=== PATIENT | female | born 1990 | race Two or more races ===

== ENCOUNTER 2025-05-20 18:11 | Emergency (ER) | payer MEDICAID, OTHER ==
[~2025-05-20] VITALS: Ht 157.5 cm; Wt 92.7 kg
--- NOTE | 2025-05-20 19:02 | DVH ---
INDICATION: vag bleed TECHNIQUE: Multiple real-time grayscale transabdominal sonographic images along with color and duplex Doppler of the uterus and ovaries were obtained. COMPARISON: None FINDINGS: The uterus measures 0.95 x 8.53 by 7.94 cm. The endometrial stripe IUP noted in the endomet rial canal The right ovary not visualized The left ovary measures 2.8 by 1.97 by 3.21 cm. Volume of the left ovary 9.4 cc. Anechoic lesion in t he left ovary measuring 1.69 x 1.86 by 0.84 cm consistent with a corpus luteal cyst Subsequent color and duplex Doppler interrogation of the ovaries demonstrated symmetric vascular flow to both ovaries, though this does not exclude the possibility of torsion due to the dual blood suppl y. [place]-rump length is 3.73 cm consistent with 10 weeks 4 days Gestational sac is 5.83 cm consistent with 12 weeks 0 days yolk sac is not visualized. Average gestational age 11 weeks 2 days MELIDA 12/07/2025 heart rate 168 beats per minute IMPRESSION: 1. Single live intrauterine with estimated gestational age of 11 weeks 2 days. 2. MELIDA 3. Corpus luteal cyst in the left ovary. 4. FHR: 168 bpm.
[2025-05-20 19:13] LABS: Hematocrit 37.1 % (36.0-46.0); Hemoglobin 12.7 g/dL (12.2-16.2); Mean Corpuscular Hemoglobin 31.5 pg (28.0-32.0); Mean Corpuscular Volume 92.0 fL (80.0-100.0); Nucleated Red Blood Cells % 0.1 %
[2025-05-20 19:24] LABS: Alanine Aminotransferase 14 U/L (7-40); Albumin 4.0 g/dL (3.2-4.8); Alkaline Phosphatase 63 U/L (46-116); Anion Gap 9 (5-15); Calcium 9.3 mg/dL (8.7-10.4); Carbon Dioxide 26 mmol/L (20-31); Chloride 104 mmol/L (98-107); Glucose 101 mg/dL (74-106); Potassium 4.0 mmol/L (3.5-5.1); Sodium 139 mmol/L (136-145); Total Protein 6.5 g/dL (5.7-8.2)
[2025-05-20 19:28] LABS: BUN/Creatinine Ratio 8.5 (10.0-20.0); Bilirubin, Total 0.2 mg/dL (0.2-1.0); Blood Urea Nitrogen < 5 mg/dL (9-23)
--- NOTE | 2025-05-20 19:51 | ED.PDOC ---
ERP CONSULTANT HPI Comments HPI: 34 y/o F, presents to the ED for CC of vaginal bleeding. Patient states, she has been experiencing vaginal spotting sudden onset, (05/11/25). Patient reports, that she was seen for same symptoms on (05/11/25) and was told to have a UTI; endorses being prescribed antibiotics. As of today, patient comments that bleeding quality has now intensified being bright red in color. Patient denies abdominal cramping, recent sexual intercourse, trauma, fall, or injury. No other symptoms or modifying factors are present at this time. Initial Vitals BP:123/85 HR:79 RR:16 O2:98% Temp:98.3 Past Medical History: DENIES ANY Past Surgical History: DENIES ANY Social History: Denies ETOH, smoking, and drug use. Medications: ZOFRAN, KEFLEX Allergies: NKA avila: HPI: Poor Historian. to miscarriages 11 weeks gestation here for vaginal spotting. No recent intercourse. REVIEW OF SYSTEMS: CONSTITUTIONAL: Denies acute: fever, diaphoresis, chills, generalized weakness. HEAD: Denies acute: headache, photophobia Eyes: Denies acute: Double vision, vision loss, eye pain, eye discharge. EARS: Denies acute: tinnitus, hearing loss, ear discharge, ear pain, THROAT: Denies acute: sore throat, swelling, difficulty swallowing , pain with swallowing, change in voice. NECK: Denies acute: neck pain, neck swelling, stiff neck. HEART: Denies acute : chest pain, palpitations, LUNGS: Denies acute: SOB, wheezing, cough, hemoptysis ABDOMEN: Denies acute: abdominal pain, Nausea, Vomiting, diarrhea, melena , hematemesis, hematochezia SKIN: Denies acute: rash, redness, lesions, itchiness. EXTREMITIES: Denies acute: calf pain, numbness, tingling, weakness, denies pain in extremity. Denies acute: Low back pain. Neuro: Denies acute: focal neurological deficit, motor or sensory focal neurological deficit, tremors, seizure like activity, confusion, dizziness, change in mental status, loss of bowel or bladder function, cauda equina like symptoms. : Denies acute: dysuria, hematuria, flank pain, increase in urinary frequency. PSYCH: Denies acute: hallucination, suicidal ideation, homicidal ideation. FEMALE: Denies acute: , foul odor, unusual discharge. PHYSICAL EXAM: General: ---no-----acute distress, awake and alert. Head: normocephalic, atraumatic. Neck: supple, trachea is midline, no swelling. Throat: Normal phonation. Eyes:, no erythema, no purulent discharge, no proptosis, no icterus. Heart: regular rate, regular rhythm, no significant murmur appreciated. Lungs: no apparent respiratory distress, Able to speak in full sentences. No wheezing, no rhonchi, no crackles. No stridors Clear to auscultation bilaterally. Abdomen: non tender to palpation, non distended, soft, no guarding, no rebound, + bowel sounds. Neuro: Awake, Alert, oriented to name, self, situation, follows commands GCS=15. Speech is normal. Skin: no petechia, no purpura, no cyanosis, non-pale, not jaundice. Lower extremities: --trace bilateral- Pitting edema no deformity, no focal swelling, no calf TTP. Makes eye contact. moves all four extremities. Face: no apparent facial droop. Ambulating in the ED independently. ED COURSE: DISCLAIMER: This medical document was created using an electronic medical record system with voice recognition software and computerized dictation system. Although this document has been carefully reviewed, there might still be some phonetic and typographical errors. Occasional wrong-word or "sound-alike" substitutions may have occurred due to the inherent limitations of voice recognition software. These areas are purely typographical due to imperfections of the software programs and do not reflect any compromise in the patient's medical care. Please read the chart carefully and recognize, using context, where these substitutions have occurred. Chief Complaint: Vaginal Bleed Time Seen by MD: 19:30 Reviewed Notes: Nurses Notes, Medications, Allergies Allergies: Coded Allergies: NO KNOWN ALLERGIES (Unverified , 05/20/25) Home Meds Active Scripts Cephalexin Monohydrate (Cephalexin) 500 Mg Tab, 1 TAB PO TID for 5 Days, #15 TAB Prov:TAI VILLAR DO 05/20/25 Information Source: Patient Mode of Arrival: Ambulatory Timing: Days Prehospital treatment: None Severity: Moderate Vaginal Discharge: None Vaginal Lesions: None Bleeding Quality: Bright Red Vaginal Mass: None Sexual Activity: Last Consensual [place]: Unknown Control: None History of: Current Blood Type: Unknown Associated Signs and Symptoms: Vaginal Bleeding Was a procedure done? Was a procedure done?: No Differential Diagnosis (PATIENT INTAKE REPRESENTATIVE) Vaginal Bleeding: - Complete, - Incomplete, - Inevitable, - Missed, - Threatened, Abruptio Placentae, Blood Loss Anemia, Dysmenorrhea, Ectopic , Hormonal, Menorrhagia, Menometror rhagia, Menstrual Bleeding, Myomatous Uterus, PID, Placenta Previa, Precipitous Hct, Trauma, UTI, Vaginitis, Other (Differential diagnosis includes but not limited to DU B, menorrhea, metromenorrhagia, neoplasm, coagulopathy,, trauma, miscarriage, placenta previa, placental abruption, ) X-Ray, Labs, Meds, VS Vital Signs Date Time Temp Pulse Resp B/P (MAP) Pulse Ox O2 Delivery O2 Flow Rate FiO2 05/20/25 18:14 98.3 79 16 123/85 98 98.3 Lab Test 05/20/25 18:49 05/20/25 18:22 Range/Units White Blood Count 9.7 4.4-10.8 10^3/uL Red Blood Count 4.04 4.0-5.20 10^6/uL Hemoglobin 12.7 12.2-16.2 g/dL Hematocrit 37.1 36.0-46.0 % Mean Corpuscular Volume 92.0 80.0-100.0 fL Mean Corpuscular Hemoglobin 31.5 28.0-32.0 pg Mean Corpuscular Hemoglobin Concent 34.3 32.0-36.0 g/dL Red Cell Distribution Width 14.6 H 11.8-14.3 % Platelet Count 256 140-450 10^3/uL Mean Platelet Volume 8.7 6.9-10.8 fL Neutrophils (%) (Auto) 73.5 37.0-80.0 % Lymphocytes (%) (Auto) 18.3 10.0-50.0 % Monocytes (%) (Auto) 7.1 0.0-12.0 % Eosinophils (%) (Auto) 0.5 0.0-7.0 % Basophils (%) (Auto) 0.6 0.0-2.0 % Neutrophils # (Auto) 7.1 1.6-8.6 10 ^3/uL Lymphocytes # (Auto) 1.8 0.4-5.4 10 ^3/uL Monocytes # (Auto) 0.7 0-1.3 10 ^3/uL Eosinophils # (Auto) 0 0-0.8 10 ^3/uL Basophils # (Auto) 0.1 0-0.2 10 ^3/uL Nucleated Red Blood Cells 0.1 % Sodium Level 139 136-145 mmol/L Potassium Level 4.0 3.5-5.1 mmol/L Chloride Level 104 98-107 mmol/L Carbon Dioxide Level 26 20-31 mmol/L Anion Gap 9 5-15 Blood Urea Nitrogen < 5 L 9-23 mg/dL Creatinine 0.59 0.550-1.02 mg/dL Glomerular Filtration Rate Calc 122 >90 mL/min BUN/Creatinine Ratio 8.5 L 10.0-20.0 Serum Glucose 101 74-106 mg/dL Calcium Level 9.3 8.7-10.4 mg/dL Total Bilirubin 0.2 0.2-1.0 mg/dL Aspartate Amino Transferase (AST) 15 13-40 U/L Alanine Aminotransferase (ALT) 14 7-40 U/L Alkaline Phosphatase 63 46-116 U/L Total Protein 6.5 5.7-8.2 g/dL Albumin 4.0 3.2-4.8 g/dL Beta HCG, Quantitative 11970.9 H 1.5-4.2 mIU/mL Urine Color Light-orange Yellow Urine Clarity Ex.turbid Clear Urine pH 8.0 5.0-9.0 Urine Specific [place] 1.020 1.001-1.035 Urine Protein Negative Negative Urine Ketones Negative Negative Urine Blood Negative Negative /uL Urine Nitrite Negative Negative Urine Bilirubin Negative Negative Urine Urobilinogen Normal Negative mg/dL Urine Leukocyte Esterase 2+ Negative /uL Urine RBC 4 0 - 4 /hpf Urine WBC Clumps Present None Seen /hpf Urine Microscopic WBC 27 H 0-5 /HPF Urine Squamous Epithelial Cells Few <5 /hpf Urine Amorphous Crystals Few None Seen /hpf Urine Bacteria None seen None Seen /hpf Urine Mucus Few None Seen Urine Glucose Normal Normal mg/dL [facility] [place] [address] Ph: [phone] DIAGNOSTIC IMAGING Diagnostic Imaging Report : [id number] Signed PATIENT: TOMMIE AVILA ACCT: [id number] UNIT: [id number] : 1990 LOC: ER ROOM / BED: / AGE / SEX: 34 / F ADM STATUS: REG ER SERVICE 21 ORDERING PHYSICIAN: TAI VILLAR DO PROCEDURE(s): OB4US - OB ULTRASOUND COMP LESS 14WKS REASON: vag bleed ORDER NUMBER(s): [id number], ACCESSION NUMBER(s): [id number] INDICATION: vag bleed TECHNIQUE: Multiple real-time grayscale transabdominal sonographic images along with color and duplex Doppler of the uterus and ovaries were obtained. COMPARISON: None FINDINGS: The uterus measures 0.95 x 8.53 by 7.94 cm. The endometrial stripe IUP noted in the endometrial canal The right ovary not visualized The left ovary measures 2.8 by 1.97 by 3.21 cm. Volume of the left ovary 9.4 cc. Anechoic lesion in the left ovary measuring 1.69 x 1.86 by 0.84 cm consistent with a corpus luteal cyst Subsequent color and duplex Doppler interrogation of the ovaries demonstrated symmetric vascular flow to both ovaries, though this does not exclude the possibility of torsion due to the dual blood supply. [place]-rump length is 3.73 cm consistent with 10 weeks 4 days Gestational sac is 5.83 cm consistent with 12 weeks 0 days yolk sac is not visualized. Average gestational age 11 weeks 2 days MELIDA 12/07/2025 heart rate 168 beats per minute IMPRESSION: 1. Single live intrauterine with estimated gestational age of 11 weeks 2 days. 2. MELIDA 3. Corpus luteal cyst in the left ovary. 4. FHR: 168 bpm. ATED BY: KAI NAILS Jr., DO DICTATED DATE/TIME: 05/20/251858 SIGNED BY: KAI NAILS Jr., SIGNED DATE/TIME: 05/20/251858 CC: Time of 1ST Reevaluation: 20:00 Reevaluation 1ST: Unchanged Patient Education/Counseling: Diagnosis, Treatment Family Education/Counseling: No Family Present Departure 1 Departure Time of Disposition: 20:44 Impression: Primary Impression: Vaginal bleeding during Additional Impressions: Intrauterine UTI in Disposition: 01 HOME / SELF CARE / HOMELESS Condition: Stable Additional Instructions: Additional instructions: Please read all instructions provided in this packet carefully. You MUST follow-up with your primary care/family doctor in 1 to 2 days. If you are unable to see your primary care/family doctor, please return to our emergency room for re-assessment and re-evaluation in 1 to 2 days. Return to the emergency room here in our facility or to the nearest ER [facility] if your symptoms change or worsen. CONSULTATIONS: you MUST Follow-up for consultation as soon as possible with: Dr. TYLER Reich doctor in 1-2 days. You MUST call the consultants office yourself to make an appointment. You may need to arrange that through your insurance and/or your primary/family doctor. If you are unable to see the senior talent management consultant in 1 to 2 days, you must return to our emergency room (or any other ER of your choice) for re-assessment and re- evaluation. Adequate fluid hydration. Although you have been discharged from the Emergency Department, this does not mean that you have a "clean bill of health". No definitive diagnosis for your symptoms has been made today. It is possible that you are in the process of d eveloping a serious illness. This is why you must return to the ED without fail if any new or worsening symptoms develop. Repeat pelvic ultrasound in 4-5 days. Repeat beta-hCG levels in 48-72 [place]. [place] [address] Absolute pelvic rest Below is a copy of your radiological report for follow up: [facility] [id number] [place] [id number] Ph: [phone] DIAGNOSTIC IMAGING Diagnostic Imaging Report : [id number] Signed PATIENT: TOMMIE AVILA ACCT: [id number] UNIT: [id number] : 1990 LOC: ER ROOM / BED: / AGE / SEX: 34 / F ADM STATUS: REG ER SERVICE 1822 ORDERING PHYSICIAN: TAI VILLAR DO PROCEDURE(s): OB4US - OB ULTRASOUND COMP LESS 14WKS REASON: vag bleed ORDER NUMBER(s): [id number], ACCESSION NUMBER(s): [id number] INDICATION: vag bleed TECHNIQUE: Multiple real-time grayscale transabdominal sonographic images along with color and duplex Doppler of the uterus and ovaries were obtained. COMPARISON: None FINDINGS: The uterus measures 0.95 x 8.53 by 7.94 cm. The endometrial stripe IUP noted in the endometrial canal The right ovary not visualized The left ovary measures 2.8 by 1.97 by 3.21 cm. Volume of the left ovary 9.4 cc. Anechoic lesion in the left ovary measuring 1.69 x 1.86 by 0.84 cm consistent with a corpus luteal cyst Subsequent color and duplex Doppler interrogation of the ovaries demonstrated symmetric vascular flow to both ovaries, though this does not exclude the possibility of torsion due to the dual blood supply. [place]-rump length is 3.73 cm consistent with 10 weeks 4 days Gestational sac is 5.83 cm consistent with 12 weeks 0 days yolk sac is not visualized. Average gestational age 11 weeks 2 days MELIDA 12/07/2025 heart rate 168 beats per minute IMPRESSION: 1. Single live intrauterine with estimated gestational age of 11 weeks 2 days. 2. MELIDA 3. Corpus luteal cyst in the left ovary. 4. FHR: 168 bpm. ATED BY: KAI NAILS Jr., DO DICTATED DATE/TIME: 05/20/251858 SIGNED BY: KAI NAILS Jr., SIGNED DATE/TIME: 05/20/251858 CC: e-Prescriptions Cephalexin Monohydrate (Cephalexin) 500 Mg Tab 1 TAB PO TID for 5 Days, #15 TAB Prov: TAI VILLAR DO 05/20/25 Discharged With: Self Critical Care Note Critical Care Time?: No I personally scribed for TAI VILLAR DO ([email or web address]) on 05/20/25 at 19:50. Electronically submitted by Porsche Fuller ([email or web address]). I personally scribed for TAI VILLAR DO ([email or web address]) on 05/20/25 at 21:56. Electronically submitted by Porsche Fuller ([email or web address]). TAI VILLAR DO May 20, 2025 19:50
[2025-05-20 20:12] LABS: Urine Amorphous Crystal FEW /hpf (None Seen); Urine Protein, UAD Negative (Negative); Urine WBC Clumps PRESENT /hpf (None Seen)
[2025-05-20] MEDS ORDERED: CEPH500T PO (20:54)
[2025-05-20 22:53] VITALS: BP 138/82; TEMP 97.8
[2025-05-20 23:07] VITALS: PULSE 61; RESP 16; O2SAT 99
== END 2025-05-20 23:09 | disposition home or self-care (01) ==
LOC: ER 18:11
DX: O00.01 Abdominal pregnancy with intrauterine pregnancy (principal); O23.41 Unspecified infection of urinary tract in pregnancy, first trimester; N39.0 Urinary tract infection, site not specified; Z3A.11 11 weeks gestation of pregnancy
CPT/HCPCS: 36415; 76801; 80053; 81001; 84702; 85025; 86850; 86900; 86901